=== PATIENT | male | born 1985 | race Caucasian/White ===

== ENCOUNTER 2018-08-20 11:44 | Emergency (ER) | payer OTHER ==
[~2018-08-20] VITALS: Ht 182.9 cm; Wt 102.0 kg
[2018-08-20 12:33] LABS: BASOPHILS % 0.9 % (0.0-2.0); HEMOGLOBIN. 14.4 g/dL (14.0-18.0); LYMPHOCYTES % 33.8 % (20.0-50.0); MEAN CORPUSCULAR HEMOGLOBIN 27.4 pg (28.0-32.0); MEAN CORPUSCULAR VOLUME 82.1 fL (80.0-94.0); MONOCYTES % 10.3 % (2.0-8.0); PLATELET 322 x1000/uL (130-400); RED BLOOD CELL COUNT 5.24 mill/uL (4.7-6.1); RED CELL DISTRIBUTION WIDTH 13.8 % (11.6-14.6)
[2018-08-20 12:37] LABS: CHLORIDE 113 mEq/L (98-107)
[2018-08-20 12:47] LABS: CARBAMAZEPINE 10.5 ug/mL (4-12)
[2018-08-20 13:49] VITALS: BP 138/86
== END 2018-08-20 14:09 | disposition home or self-care (01) ==
LOC: ER 11:44
DX: R56.9 Unspecified convulsions (principal)
CPT/HCPCS: 36415; 80053; 80156; 85025; 99283; Z7610